=== PATIENT | male | born 1975 | race Caucasian/White ===

== ENCOUNTER → 2017-04-14 | Outpatient (CLI) | payer OTHER ==
[~2017-04-14] MED LIST: OPTIRAY 320 IV PRN; PATIENT'S ALLERGY INFO NEEDS ENTERED STA
--- NOTE | 2017-04-14 14:52 | DIAGNOSTIC IMAGING REPORT ---
CHEST CTA for PULMONARY ARTERIES CT DOSE: 470.65 mGycm HISTORY: Chest pain POSSIBLE Pe, chest PAIN ,TACHYCARDIA STAT TECHNIQUE: Multiaxial CT images of the chest were performed following the intravenous administration of contrast to evaluate the pulmonary arteries. Maximal intensity projection images were also obtained. COMPARISON STUDY: None. FINDINGS: There is a normal caliber thoracic aorta with no evidence for dissection. There is no evidence for pulmonary embolus. No pleural effusions. No pneumothorax. The liver and spleen are unremarkable. No mediastinal or hilar lymphadenopathy. The central airways are patent. The lungs demonstrate nonspecific interstitial changes bilaterally. There are no consolidative infiltrates. IMPRESSION: No evidence for pulmonary embolus. Interstitial prominence throughout the lungs bilaterally raising the possibility of an entity such as hypersensitivity pneumonitis. Electronically signed by: Nelson Crockett M.D. 04/14/2017 2:50 PM Dictated Date/Time: 04/14/2017 2:42 PM
== END | disposition home or self-care (01) ==
LOC: C.CTS 14:07
PROVIDERS: ATTEND Internal Medicine
DX: R07.1 Chest pain on breathing (principal); R06.02 Shortness of breath; R00.0 Tachycardia, unspecified

== ENCOUNTER → 2017-04-16 | Outpatient (CLI) | payer OTHER ==
[~2017-04-16] MED LIST changes: -PATIENT'S ALLERGY INFO NEEDS ENTERED STA
--- NOTE | 2017-04-16 09:09 | DIAGNOSTIC IMAGING REPORT ---
CT SCAN OF THE CHEST WITHOUT IV CONTRAST CLINICAL HISTORY: Atypical chest pain. Dyspnea. Neck swelling. COMPARISON STUDY: Chest CT dated 04/14/2017. TECHNIQUE: CT scan of the thorax was performed from the thoracic inlet to the upper abdomen. Images are reviewed in the axial, sagittal, and coronal planes. IV contrast was not administered for this examination. The patient was scanned in the prone position. CT DOSE: 861.40 mGy.cm FINDINGS: Thyroid: Imaged portions of the thyroid gland are normal in size and attenuation. Thoracic aorta: The thoracic aorta is normal in caliber and demonstrates bovine variant arch anatomy. Heart: The heart is normal in size and without pericardial effusion. Lungs and pleural spaces: There is minimal linear scarring versus atelectasis at the lung bases. The lungs and pleural spaces are otherwise clear. A small fat-containing Bochdalek hernia is noted at the right lung base. The trachea and central airways are clear. There is no evidence of interstitial lung disease. Mediastinum: There is no mediastinal lymphadenopathy. Nica: Not well assessed without IV contrast. Axillae: There is no axillary lymphadenopathy. Upper abdomen: There is an indeterminant 2.5 cm low-attenuation lesion in hepatic segment VII below the diaphragm seen on axial image #212. This does not meet criteria for simple cyst. Additional subcentimeter hepatic densities there is an cysts but are too small for definitive characterization. The visualized kidneys demonstrate mild cortical atrophy. A 2.0 cm cyst is noted on the right. Parapelvic cysts are seen on the left. Skeletal structures: No lytic or blastic bony lesions are seen. IMPRESSION: 1. The lungs are clear. 2. There is no mediastinal lymphadenopathy. 3. There is an indeterminant 2.5 cm lesion the right lobe of liver. This does not meet CT criteria for simple cyst. This may represent a hemangioma but cannot be further characterized on this examination. Correlation with an ultrasound of the liver is recommended for further assessment. Electronically signed by: Nelson Goode M.D. 04/16/2017 9:08 AM Dictated Date/Time: 04/16/2017 9:00 AM
--- NOTE | 2017-04-16 09:15 | DIAGNOSTIC IMAGING REPORT ---
CT soft tissue neck SOFT TISSUE NECK WITH CLINICAL HISTORY: NECK SWELLING pain. Edema. TECHNIQUE: Transaxial acquisition. Multiple axial reformatted images. COMPARISON STUDY: None FINDINGS: Negative study. Salivary glands are uniform and symmetric. No significant shoshana pathology. The glottic and subglottic regions are unremarkable. No significant cervical adenopathy. IMPRESSION: Negative study Electronically signed by: Nelson Crockett M.D. 04/16/2017 9:13 AM Dictated Date/Time: 04/16/2017 9:09 AM
== END | disposition home or self-care (01) ==
LOC: C.CTS 07:35
PROVIDERS: ATTEND Internal Medicine
DX: R07.1 Chest pain on breathing (principal); R06.02 Shortness of breath; R00.0 Tachycardia, unspecified; R22.1 Localized swelling, mass and lump, neck; K76.9 Liver disease, unspecified

== ENCOUNTER → 2017-04-27 | Outpatient (CLI) | payer OTHER ==
--- NOTE | 2017-04-28 06:34 | DIAGNOSTIC IMAGING REPORT ---
FLUOROSCOPIC SNIFF TEST CLINICAL HISTORY: Shortness of breath. COMPARISON STUDY: Chest CT April 16, 2017. Fluoroscopy time: 0.7 minutes. FINDINGS: There is mild elevation right hemidiaphragm. However, there is no evidence of diaphragm paralysis. IMPRESSION: No evidence of hemidiaphragm paralysis. Mild elevation of the right hemidiaphragm. Electronically signed by: Tulio Brooke M.D. 04/28/2017 6:33 AM Dictated Date/Time: 04/28/2017 6:30 AM
== END | disposition home or self-care (01) ==
LOC: C.RAD 15:17
PROVIDERS: ATTEND Physician Assistant
DX: R06.02 Shortness of breath (principal); R05 Cough

== ENCOUNTER → 2017-04-30 | Outpatient (CLI) | payer OTHER ==
--- NOTE | 2017-04-30 15:16 | EXERCISE STRESS ECHO ---
*NOTICE TO RECEIVING REPUBLICAN AGENCY This information is strictly Confidential and protected under [place] law. [place] law prohibits you from making any further disclosure of this information unless further disclosure is expressly permitted by the written consent of the person to whom it pertains or is authorized by law. A general authorization for the release of medical or other information is not sufficient for this purpose. Hospital accepts no responsibility if the information is made available to any other person, INCLUDING THE PATIENT. Interpretation Summary * STRESS STUDY: Normal exercise stress echocardiogram. No echocardiographic or ECG evidence of myocardial ischemia having achieved heart rate adequate for diagnostic purposes. Procedure Details * ECHOEX, CPT #76285 * ECHO COLOR FLOW, CPT #43420 * ECHO DOPPLER, CPT #11453 Left Ventricle * The left ventricle is normal in size. * Ejection Fraction = 50-55%. * Left ventricular systolic function is normal. * The left ventricular wall motion is normal. Right Ventricle * The right ventricle is normal size. Atria * The left atrial size is normal. * Right atrial size is normal. * The interatrial septum is intact with no evidence for an atrial septal defect. Mitral Valve * The mitral valve is normal in structure and function. Tricuspid Valve * The tricuspid valve is normal in structure and function. Aortic Valve * The aortic valve is normal in structure and function. Pulmonic Valve * The pulmonic valve is not well visualized. Great Vessels * The aortic root and proximal ascending aorta are normal sized. Pericardium * There is no pericardial effusion. Stress Parameters * Normal baseline electrocardiogram. * Stress ECG: No ST changes. No arrhythmias. * The stress ECG response was normal * The stress portion of this study was personally supervised by the undersigned interpreting physician. * Rest heart rate was '77' BPM. * Rest blood pressure was '130/83' * Maximum heart rate achieved was 190 bpm. * Maximum heart rate was 107 % of maximum age-predicted heart rate. * Maximum blood pressure was '170/93' * Total exercise time was '10:03' * Maximum exercise MET level achieved was '11.90' METS * Maximum treadmill speed was '4.20' miles per hour. * Maximum treadmill elevation was '16.00'% grade. Right Ventricle * The right ventricular wall motion is normal. MMode 2D Measurements and Calculations IVSd 1.5 cm IVSs 1.6 cm LVIDd 3.8 cm LVIDs 2.5 cm LVPWd 1.3 cm LVPWs 1.7 cm IVS/LVPW 1.2 FS 32.5 % EDV(Teich) 60.2 ml ESV(Teich) 23.1 ml EF(Teich) 61.6 % EDV(cubed) 52.9 ml ESV(cubed) 16.3 ml EF(cubed) 69.2 % % IVS thick 9.3 % % LVPW thick 34.0 % LV mass(C)d 189.3 grams LV mass(C)dI 81.8 grams/m\S\2 LV mass(C)s 157.9 grams LV mass(C)sI 68.2 grams/m\S\2 SV(Teich) 37.1 ml SI(Teich) 16.0 ml/m\S\2 SV(cubed) 36.6 ml SI(cubed) 15.8 ml/m\S\2 Ao root diam 3.5 cm Ao root area 9.7 cm\S\2 LA dimension 4.4 cm LA/Ao 1.3 LVOT diam 2.0 cm LVOT area 3.1 cm\S\2 LVAd ap4 39.9 cm\S\2 LVLd ap4 9.3 cm EDV(MOD-sp4) 136.3 ml EDV(sp4-el) 145.1 ml LVAs ap4 25.7 cm\S\2 LVLs ap4 8.1 cm ESV(MOD-sp4) 65.4 ml ESV(sp4-el) 69.3 ml EF(MOD-sp4) 52.0 % EF(sp4-el) 52.3 % LVAd ap2 35.9 cm\S\2 LVLd ap2 9.2 cm EDV(MOD-sp2) 115.0 ml EDV(sp2-el) 119.2 ml LVAs ap2 22.8 cm\S\2 LVLs ap2 8.1 cm ESV(MOD-sp2) 53.0 ml ESV(sp2-el) 54.6 ml EF(MOD-sp2) 53.9 % EF(sp2-el) 54.2 % LVLd %diff -1.81 % EDV(MOD-bp) 127.2 ml LVLs %diff -0.27 % ESV(MOD-bp) 58.9 ml EF(MOD-bp) 53.7 % SV(MOD-sp4) 70.9 ml SI(MOD-sp4) 30.7 ml/m\S\2 SV(MOD-sp2) 62.0 ml SI(MOD-sp2) 26.8 ml/m\S\2 SV(MOD-bp) 68.3 ml SI(MOD-bp) 29.5 ml/m\S\2 SV(sp4-el) 75.8 ml SI(sp4-el) 32.8 ml/m\S\2 SV(sp2-el) 64.6 ml SI(sp2-el) 27.9 ml/m\S\2 Doppler Measurements and Calculations MV E max lenin 74.4 cm/sec MV A max lenin 53.4 cm/sec MV E/A 1.4 MV P1/2t max lenin 82.2 cm/sec MV P1/2t 38.3 msec MVA(P1/2t) 5.7 cm\S\2 MV dec slope 629.0 cm/sec\S\2 MV dec time 0.13 sec Ao V2 max 105.9 cm/sec Ao max PG 4.5 mmHg Ao max PG (full) 0.76 mmHg MERI(V,A) 2.8 cm\S\2 MERI(V,D) 2.8 cm\S\2 LV V1 max PG 3.7 mmHg LV V1 max 96.6 cm/sec PA V2 max 81.2 cm/sec PA max PG 2.6 mmHg PI max lenin 158.9 cm/sec PI max PG 10.1 mmHg PI dec slope 231.6 cm/sec\S\2 PI P1/2t 200.9 msec
== END | disposition home or self-care (01) ==
LOC: C.CPL 11:51
PROVIDERS: ATTEND Internal Medicine
DX: K76.9 Liver disease, unspecified (principal)

== ENCOUNTER → 2017-05-03 | Outpatient (CLI) | payer OTHER ==
--- NOTE | 2017-05-03 14:43 | DIAGNOSTIC IMAGING REPORT ---
CT OF THE ABDOMEN AND PELVIS WITH AND WITHOUT CONTRAST CLINICAL HISTORY: Abdominal pain. Hepatic lesion. COMPARISON STUDY: Chest CTs Apr 16 2017 and April 14, 2017. TECHNIQUE: Unenhanced, arterial, venous and delayed phase imaging was performed. Injection of 93 cc of Optiray [address] DOSE: 3944.31 mGycm FINDINGS: Lung bases are clear. There are a few right renal calculi which measure up to 3 mm. There is a left-sided parapelvic cysts. There is no hydronephrosis. Note is made of an 8 mm left hepatic lobe cyst. There is a small a suspected right hepatic lobe cyst. Note is made of a 2.5 cm hypodense segment 7 hepatic lesion which demonstrates aggressive nodular enhancement which becomes nearly isodense to liver on the more delayed phase images. This corresponds to the lesion shown on CT of April 16, 2017. The spleen, adrenal glands and pancreas are normal. Caliber and wall thickness of small and large bowel are normal. There are no suspicious osseous lesions. There is no lymphadenopathy. There is a 2 cm right renal cyst. IMPRESSION: 1. 2.5 cm right hepatic lobe lesion reflects a hemangioma. This corresponds to the lesion shown on CT of April 16, 2017. No suspicious hepatic lesions. 2. No acute process within the abdomen or pelvis. 3. Right-sided nephrolithiasis. 4. 2 cm right renal cyst. Electronically signed by: Tulio Brooke M.D. 05/03/2017 2:42 PM Dictated Date/Time: 05/03/2017 2:34 PM
== END | disposition home or self-care (01) ==
LOC: C.CTS 13:19
PROVIDERS: ATTEND Physician Assistant
DX: K76.9 Liver disease, unspecified (principal); R06.02 Shortness of breath; R10.9 Unspecified abdominal pain; N20.0 Calculus of kidney; N28.1 Cyst of kidney, acquired

== ENCOUNTER → 2017-05-17 | Outpatient (CLI) | payer OTHER ==
[2017-05-17 14:46] LABS: BASO % 0.4 %; BASO ABS # 0.03 K/uL (0-0.2); COMPLETE YES; EOS % 1.6 %; HEMATOCRIT 47.6 % (42-52); IG% 0.4 %; LYMPH % 20.3 %; LYMPH ABS # 1.52 K/uL (1.2-3.4); MEAN CELL VOLUME 89.8 fL (80-100); MEAN CORPUSCULAR HEMOGLOBIN 31.9 pg (25-34); MEAN CORPUSCULAR HGB CONC 35.5 g/dl (32-36); MEAN PLATELET VOLUME 12.6 fL (7.4-10.4); MONO % 7.8 %; NEUT % 69.5 %; PLATELET COUNT 213 K/uL (130-400); WHITE BLOOD COUNT 7.47 K/uL (4.8-10.8)
[2017-05-17 15:58] LABS: ALT/SGPT 72 U/L (12-78); AST/SGOT 28 U/L (15-37); BLOOD UREA NITROGEN 14 mg/dl (7-18); BUN/CREATININE RATIO 11.8 (10-20); CARBON DIOXIDE 25 mmol/L (21-32); CHLORIDE 108 mmol/L (98-107); CHOLESTEROL 159 mg/dl (0-200); GLUCOSE 76 mg/dl (70-99); POTASSIUM 3.9 mmol/L (3.5-5.1); SODIUM 143 mmol/L (136-145); TRIGLYCERIDES 147 mg/dl (0-150); VERY LOW DENSITY LIPOPROT CALC 29 mg/dl
[2017-05-17 16:01] LABS: ALB/GLOB RATIO 1.1 (0.9-2); ALKALINE PHOSPHATASE 95 U/L (45-117); CHOLESTEROL/HDL RATIO 3.5; HDL CHOLESTEROL 45 mg/dl; LDL CHOLESTEROL CALCULATED 85 mg/dl
[2017-05-17 16:13] LABS: CALCIUM 9.5 mg/dl (8.5-10.1)
== END | disposition home or self-care (01) ==
LOC: C.LAB1850 12:39
PROVIDERS: ATTEND Internal Medicine
DX: Z00.00 Encounter for general adult medical examination without abnormal findings (principal); R51 Headache

== ENCOUNTER → 2017-06-07 | Outpatient (CLI) | payer OTHER ==
--- NOTE | 2017-06-07 11:17 | DIAGNOSTIC IMAGING REPORT ---
CERVICAL SPINE MRI HISTORY: 42-year-old male with history of unspecified visual disturbance, cervical disc disorder unspecified, other spondylopathy. TECHNIQUE: Multiplanar multisequence MRI of the cervical spine was performed without the use of contrast. COMPARISON: CT from 04/16/2017. FINDINGS: Multilevel degenerative changes of the cervical spine. Mild vertebral body height loss of C5 with the remainder of the vertebral body heights preserved. Fatty endplate changes noted (Modic type II). No bone marrow edema. Mild intervertebral disc height loss from C4-5 to C6-7. No increased signal intensity within the intervertebral disc spaces. Disc osteophyte complexes from C4-5 to C6-7 result in varying degrees of ventral thecal sac effacement further detailed below: C2-C3: Normal. C3-C4: Uncovertebral hypertrophy results in mild left neural foraminal narrowing. No spinal canal narrowing. C4-C5: Disc osteophyte complex results in minimal effacement of the ventral thecal sac and mild effacement of the lateral recesses. No abutment of the spinal cord. No neural foraminal narrowing. C5-C6: Uncovertebral hypertrophy and to a lesser extent disc osteophyte complex result in moderate bilateral neural foraminal narrowing. Minimal effacement of the ventral thecal sac. C6-C7: Disc osteophyte complex and uncovertebral hypertrophy result in minimal bilateral neural foraminal narrowing. Mild effacement of the ventral thecal sac, which is not about the spinal cord. C7-T1: Normal. Spinal cord maintains normal morphology and signal intensity. Paraspinal soft tissues normal. Limited intracranial evaluation normal. IMPRESSION: 1. Multilevel degenerative changes as above. Neural foraminal narrowing worst at C5-6. No significant spinal canal narrowing. Electronically signed by: Ricky Platt 06/07/2017 11:16 AM Dictated Date/Time: 06/07/2017 10:59 AM
--- NOTE | 2017-06-07 11:36 | DIAGNOSTIC IMAGING REPORT ---
BRAIN WITHOUT CONTRAST HISTORY:42 [id number] patient presents with headaches, ear and jaw pain with sinus drainage for several months. No reported trauma. COMPARISON: None available. TECHNIQUE: Multiplanar multisequence MRI of the brain was obtained without IV contrast. FINDINGS: There is no restricted diffusion to suggest acute ischemia. The midline structures including the corpus callosum, brainstem, optic chiasm, pituitary gland and infundibulum appear unremarkable on the sagittal T1 series. No cerebellar tonsillar herniation. No acute intracranial hemorrhage, midline shift, hydrocephalus, intracranial mass or abnormal extra-axial collections. No abnormal T2/FLAIR prolongation is identified. Orbits are symmetric. Mastoid air cells on the left are clear. There is a small right mastoid effusion. Polypoid mucosal thickening involves the inferior right maxillary sinus. There is mild ethmoid sinus disease. Soft tissues are unremarkable. IMPRESSION: 1. No acute intracranial abnormality. 2. Moderate mucosal disease of the inferior right maxillary sinus with mild ethmoid sinus disease. 3. Trace right mastoid effusion. The above report was generated using voice recognition software. It may contain grammatical, syntax or spelling errors. Electronically signed by: Satnam Lauren 06/07/2017 11:35 AM Dictated Date/Time: 06/07/2017 11:31 AM
== END | disposition home or self-care (01) ==
LOC: C.MRI 09:42
PROVIDERS: ATTEND Internal Medicine
DX: H53.9 Unspecified visual disturbance (principal); R51 Headache; M50.90 Cervical disc disorder, unspecified, unspecified cervical region; M48.00 Spinal stenosis, site unspecified; J34.89 Other specified disorders of nose and nasal sinuses